=== PATIENT | male | born 2000 | race Caucasian/White ===

== ENCOUNTER 2024-03-09 01:26 | Observation (INO) ==
[2024-03-09] MEDS: SODIUM CHLORIDE 0.9% 1,000 ML IV STA ×2 (01:48→04:14)
--- NOTE | 2024-03-09 01:48 | ED Physician Documentation ---
PD HPI NVD Stated complaint Stated Complaint: BLOODY STOOL/N/V Chief complaint Chief Complaint: Abd Pain History obtained from History obtained from: Patient History of Present Illness Timing - onset: Enter time (1999) and Today Timing - duration: Hours Associated symptoms: Abdominal pain, Hematochezia, Dizzy and Near syncope / syncope Contributing factors: Sick contact (girlfiriends daughter with n/v 2 days ago) Improved by: Vomiting and Meds (zofran given en-route helped some with nausea) Similar symptoms before: Has not had sx before Recently seen: Not recently seen Additonal information Additional information: Angelo Key is a 23-year-old male previously healthy who had a poor appetite today and then at approximately 8 PM developed acute nausea and vomiting. He also indicates that he had some bright red blood per rectum after several bowel movements that were normal. He continues to have blood per rectum. He has not had either of the symptoms previously. He has been exposed to a child who has had gastroenteritis 2 days ago.He did receive some Zofran and route to the hospital and he had some mild improvement in his nausea associated with that. He continues to be nauseated. [place] Coma Scale Assess Eye opening: Spontaneous Verbal response: Oriented Motor response: Obeys Commands Total score: 15 Review of Systems Constitutional Reports: Chills and Diaphoresis; Denies: Fever Cardiovascular Reports: shortness of breath with exertion Respiratory Reports: Shortness of breath; Denies: Cough Gastrointestinal Reports: Abdominal pain, Nausea, Vomiting and Rectal bleeding; Denies: Coffee grounds in vomit, Painful bowel movements, Rectal pain, Rectal swelling or Rectal itching Musculoskeletal Reports: Back pain Meds/Allgy Home Medications Ambulatory Orders Medication Instructions Recorded Confirmed No Known Home Medications 03/09/24 03/09/24 Allergies Allergies Allergy/AdvReac Type Severity Reaction Status Date / Time amoxicillin Allergy Intermediate Rash Verified 03/09/24 01:38 [facility] Medical History Medical History (Updated 03/09/24 @ 05:23 by Jabari Nelson MD) No pertinent past medical history Surgical History Surgical History (Updated 03/09/24 @ 01:35 by KIANA Lazaro) No pertinent past surgical history Social History Social History Relationship: Do you feel safe in your home environment?: Yes Suffered physical, verbal, emotional, or financial abuse?: No POLST Patient has POLST: No Exam Exam Pale appearing 23-year-old male who is hyperventilating has dry mucous membranes and appears ill. 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 Constitutional The patient appears ill HENMT normocephalic and head/scalp atraumatic Eyes PERRL and EOMs intact bilaterally Neck/C-Spine visual inspection normal and trachea midline Chest inspection of chest normal and palpation of chest normal Respiratory breath sounds equal bilaterally, normal respiratory effort and clear to auscultation bilaterally Cardiovascular heart rate abnormal (tachycardic) (120), regular rhythm noted and no murmur Gastrointestinal tender to palpation (mild) and (epigastric) and rectal exam abnormal (heme positive stool) (pink blood on the glove. No hemorrhoids) Genitourinary no CVA tenderness Back/Pelvis spine normal to inspection Extremities normal to inspection, normal to palpation and no tenderness Neurology ed tech II-XII intact and no movement abnormality noted Psychiatry mental status grossly normal, oriented x3 and thought process normal The patient does appear anxious. Results Vitals Vitals: Vital Signs - 24 hr 03/09/24 01:31 03/09/24 02:05 03/09/24 02:24 Temperature 36.1 C L Temperature Source Temporal Artery Scan Pulse Rate 125 H 76 81 Respiratory Rate 19 15 15 Blood Pressure 100/66 100/66 115/78 O2 Saturation 100 98 98 O2 Source Room air Nasal cannula Room air If not protocol: Oxygen Flow, liters/minute 98 Pain Intensity 8 3 0 03/09/24 02:27 03/09/24 02:52 03/09/24 04:00 Temperature Temperature Source Pulse Rate 78 84 106 H Respiratory Rate 18 16 18 Blood Pressure 115/78 117/70 116/71 O2 Saturation 98 98 97 O2 Source Nasal cannula Nasal cannula Room air If not protocol: Oxygen Flow, liters/minute 2 2 Pain Intensity 7 0 3 Oxygen O2 Source Room air Labs Labs: Laboratory Tests 03/09/24 03/09/24 03/09/24 01:50 02:03 03:42 WBC 19.5 H 17.0 H RBC 6.25 H 5.62 Hgb 18.2 H 16.5 Hct 51.5 47.2 MCV 82.4 84.0 MCH 29.1 29.4 MCHC 35.3 35.0 RDW 11.7 L 11.8 L Plt Count 281 238 MPV 9.9 10.2 Neut # (Auto) 17.8 H 15.6 H Lymph # (Auto) 0.4 L 0.3 L [place] # (Auto) 1.1 H 1.0 Eos # (Auto) 0.0 0.0 Baso # (Auto) 0.1 0.1 Absolute Nucleated RBC 0.00 0.00 Nucleated RBC % 0.0 0.0 PT 15.4 H INR 1.4 H VBG pH 7.440 H VBG pCO2 31.2 L VBG pO2 37.9 VBG HCO3 20.7 L VBG Total CO2 21.7 L VBG O2 Saturation 74.3 VBG Base Excess -2.1 L Sodium 136 Potassium 3.5 Chloride 98 L Carbon Dioxide 23 Anion Gap 15.0 H BUN 18 Creatinine 1.5 H Estimated GFR (MDRD) 59 L Glucose 162 H Calcium 10.8 H Total Bilirubin 1.5 H AST 15 ALT 13 Alkaline Phosphatase 76 Total Protein 8.8 Albumin 5.5 Globulin 3.3 Albumin/Globulin Ratio 1.7 Lipase 18 Urine Color Urine Clarity Urine pH Ur Specific [place] Urine Protein Urine Glucose (UA) Urine Ketones Urine Occult Blood Urine Nitrite Urine Bilirubin Urine Urobilinogen Ur Leukocyte Esterase Urine RBC Urine WBC Ur Squamous Epith Cells Urine Bacteria Urine Mucus Ur Microscopic Review Urine Culture Comments Nasal Adenovirus (PCR) NOT DETECTED Nasal B. parapertussis DNA (PCR) NOT DETECTED Nasal Coronavir 229E PCR NOT DETECTED Nasal Coronavir HKU1 PCR NOT DETECTED Nasal Coronavir NL63 PCR NOT DETECTED Nasal Coronavir OC43 PCR NOT DETECTED Nasal Enterovir/Rhinovir PCR NOT DETECTED Nasal Influenza B PCR NOT DETECTED Nasal Influenza A PCR NOT DETECTED Nasal Parainfluen 1 PCR NOT DETECTED Nasal Parainfluen 2 PCR NOT DETECTED Nasal Parainfluen 3 PCR NOT DETECTED Nasal Parainfluen 4 PCR NOT DETECTED Nasal RSV (PCR) NOT DETECTED Nasal B.pertussis DNA PCR NOT DETECTED Nasal C.pneumoniae (PCR) NOT DETECTED Nav Human Metapneumo PCR NOT DETECTED Nasal M.pneumoniae (PCR) NOT DETECTED Nasal SARS-CoV-2 (PCR) NOT DETECTED Serum Ketones NEGATIVE 03/09/24 03:45 WBC RBC Hgb Hct MCV MCH MCHC RDW Plt Count MPV Neut # (Auto) Lymph # (Auto) [place] # (Auto) Eos # (Auto) Baso # (Auto) Absolute Nucleated RBC Nucleated RBC % PT INR VBG pH VBG pCO2 VBG pO2 VBG HCO3 VBG Total CO2 VBG O2 Saturation VBG Base Excess Sodium Potassium Chloride Carbon Dioxide Anion Gap BUN Creatinine Estimated GFR (MDRD) Glucose Calcium Total Bilirubin AST ALT Alkaline Phosphatase Total Protein Albumin Globulin Albumin/Globulin Ratio Lipase Urine Color DARK YELLOW Urine Clarity CLEAR Urine pH 6.0 Ur Specific [place] >=1.030 H Urine Protein 30 H Urine Glucose (UA) NEGATIVE Urine Ketones 15 H Urine Occult Blood NEGATIVE Urine Nitrite NEGATIVE Urine Bilirubin SMALL H Urine Urobilinogen 0.2 (NORMAL) Ur Leukocyte Esterase NEGATIVE Urine RBC 0-5 Urine WBC 0-3 Ur Squamous Epith Cells RARE Squamous Urine Bacteria Rare Urine Mucus Few Strands Ur Microscopic Review INDICATED Urine Culture Comments NOT INDICATED Nasal Adenovirus (PCR) Nasal B. parapertussis DNA (PCR) Nasal Coronavir 229E PCR Nasal Coronavir HKU1 PCR Nasal Coronavir NL63 PCR Nasal Coronavir OC43 PCR Nasal Enterovir/Rhinovir PCR Nasal Influenza B PCR Nasal Influenza A PCR Nasal Parainfluen 1 PCR Nasal Parainfluen 2 PCR Nasal Parainfluen 3 PCR Nasal Parainfluen 4 PCR Nasal RSV (PCR) Nasal B.pertussis DNA PCR Nasal C.pneumoniae (PCR) Nav Human Metapneumo PCR Nasal M.pneumoniae (PCR) Nasal SARS-CoV-2 (PCR) Serum Ketones Procedures IVC sono (time) 0145: Bedside IVC sono: IVC measures (cm) (1.1) and Dehydration (est 1+ liter deficit) PD Medical Decision Making ED course Complexity details: reviewed results, re-evaluated patient, considered differential and d/w patient Reviewed Lab Results: Patient's white blood cell count is markedly elevated at 19.5 and there are no comparisons. Hemoglobin and hematocrit are upper end of normal platelets are normal auto differential shows a left shift. The PT is 15.4 with an INR of 1.4 chemistries show creatinine elevated at 1.5 with no comparison glucose is elevated at 162 and route the patient's blood glucose was 199. Calcium elevated at 10.8 total bilirubin elevated at 1.5 the remainder of the liver functions are normal. BUN is normal at 18. This patient has had acute bleeding per rectum and does not have a decrease in his hemoglobin or hematocrit. He has elevated hematocrit and hemoglobin. Creatinine elevated at 1.5 without comparison is concerning for pre-existing renal disease. The patient has been ill for hours and it does take an entire day to raise the creatinine by 1 point. ED course: This 23-year-old male otherwise previously healthy presents to the emergency department appearing ill. He has had a brief illness and appears anxious and is hyperventilating on arrival. He does have a history of bright red blood per rectum associated with this illness and he has no findings in the rectum to account for blood. The amount of blood loss is presumed to be small as he has elevated hemoglobin and hematocrit. He is mildly dehydrated on interrogation of the IVC with POCUS. Today here in the emergency department we are administering fluid and Zofran as well as some Ativan. Shortly after receiving the Ativan the patient falls fastly asleep no longer hyperventilating and his pulse comes down to 80. No longer vomiting. Despite improvement in vitals he has more blood per rectum and this is sent for analysis and blood counts are repeated. Gastroenteritis with a fair amount of bleeding per rectum. After 4 hours of treatment in the emergency department the patient has some improvement in his nausea still feels dry and feels like he will have more blood per rectum. He has had a fair amount of blood out and despite normal blood counts I believe admission to the hospital for observation and supportive therapy is indicated. I spoke with the continuous washer operator at 0605 and he requested we do CT scan of abdomen and he will place admission orders. Discharge Plan Discharge Patient Disposition: ED Place in Observation Condition: Fair Clinical Impression: Gastroenteritis, Acute GI bleeding Prescriptions: No Action No Known Home Medications Print Language: Danish Stand Alone Forms: PCP List
[2024-03-09] MEDS: ONDANSETRON 4 MG/2 ML VIAL IVP STA (01:49)
[2024-03-09] MEDS: LORazepam 2 MG/ML VIAL IVP STA (01:49)
[2024-03-09 01:55] LABS: BASOPHILS # (AUTO) 0.1 10^3/uL (0.0-0.1); BASOPHILS % (AUTO) 0.4 %; EOSINOPHILS % (AUTO) 0.1 %; HCT - HEMATOCRIT 51.5 % (42.0-52.0); HGB - HEMOGLOBIN 18.2 g/dL (14.0-18.0); LYMPHOCYTES # (AUTO) 0.4 10^3/uL (1.5-3.5); LYMPHOCYTES % (AUTO) 2.2 %; MEAN CORPUSCULAR HEMOGLOBIN 29.1 pg (27.0-31.0); MEAN CORPUSCULAR HGB CONC 35.3 g/dL (32.0-36.0); MEAN CORPUSCULAR VOLUME 82.4 fL (80.0-94.0); MEAN PLATELET VOLUME 9.9 fL (7.4-11.4); MONOCYTES # (AUTO) 1.1 10^3/uL (0.0-1.0); MONOCYTES % (AUTO) 5.6 %; NEUTROPHILS # (AUTO) 17.8 10^3/uL (1.5-6.6); NEUTROPHILS % (AUTO) 91.3 %; PLT - PLATELET COUNT 281 10^3/uL (130-450); RED BLOOD COUNT 6.25 10^6/uL (4.70-6.10); RED CELL DISTRIBUTION WIDTH 11.7 % (12.0-15.0); WHITE BLOOD COUNT 19.5 x10^3/uL (4.8-10.8)
[2024-03-09 02:01] LABS: INR 1.4 (0.8-1.2); PT - PROTHROMBIN TIME 15.4 secs (9.9-12.6)
[2024-03-09 02:13] LABS: ALBUMIN 5.5 g/dL (3.2-5.5); ALBUMIN/GLOBULIN RATIO 1.7 (1.0-2.2); BILIRUBIN,TOTAL 1.5 mg/dL (0.2-1.0); CALCIUM 10.8 mg/dL (8.5-10.3); CREATININE 1.5 mg/dL (0.6-1.3); POTASSIUM 3.5 mmol/L (3.5-4.5); TOTAL PROTEIN 8.8 g/dL (6.4-8.9)
[2024-03-09 03:09] LABS: B. PARAPERTUSSIS- RESP PCR PAN NOT DETECTED; B. PERTUSSIS- RESP PCR PANEL NOT DETECTED; C. PNEUMONIAE- RESP PCR PANEL NOT DETECTED; CORONAVIRUS 229E-RESP PCR NOT DETECTED; CORONAVIRUS HKU1-RESP PCR NOT DETECTED; CORONAVIRUS NL63-RESP PCR NOT DETECTED; CORONAVIRUS OC43-RESP PCR NOT DETECTED; HUMAN METAPNEUMOVIRUS NOT DETECTED; INFLUENZA A- RESP PCR PANEL NOT DETECTED; INFLUENZA B - RESP PCR PANEL NOT DETECTED; M. PNEUMONIAE- RESP PCR PANEL NOT DETECTED; PARAINFLUENZA VIRUS 1 NOT DETECTED; PARAINFLUENZA VIRUS 2 NOT DETECTED; PARAINFLUENZA VIRUS 3 NOT DETECTED; PARAINFLUENZA VIRUS 4 NOT DETECTED; RHINOVIRUS/ENTEROVIRUS NOT DETECTED; RSV- RESP PCR PANEL NOT DETECTED; SARS-CoV-2 -RESP PCR PANEL NOT DETECTED
[2024-03-09 03:48] LABS: BASOPHILS # (AUTO) 0.1 10^3/uL (0.0-0.1); BASOPHILS % (AUTO) 0.3 %; HCT - HEMATOCRIT 47.2 % (42.0-52.0); HGB - HEMOGLOBIN 16.5 g/dL (14.0-18.0); LYMPHOCYTES # (AUTO) 0.3 10^3/uL (1.5-3.5); MEAN CORPUSCULAR HEMOGLOBIN 29.4 pg (27.0-31.0); MEAN PLATELET VOLUME 10.2 fL (7.4-11.4); MONOCYTES % (AUTO) 5.7 %; NEUTROPHILS # (AUTO) 15.6 10^3/uL (1.5-6.6); NEUTROPHILS % (AUTO) 91.7 %; PLT - PLATELET COUNT 238 10^3/uL (130-450); RED BLOOD COUNT 5.62 10^6/uL (4.70-6.10); RED CELL DISTRIBUTION WIDTH 11.8 % (12.0-15.0)
[2024-03-09 03:52] LABS: VBG BASE EXCESS -2.1 mmol/L (-2 - +2); VBG HCO3 20.7 mmol/L (23-28); VBG OXYGEN SATURATION 74.3 % (60-80); VBG PCO2 31.2 mmHg (41-51); VBG PH 7.44 (7.31-7.41); VBG PO2 37.9 mmHg (25-47); VBG TOTAL CO2 21.7 mmol/L (24-29)
[2024-03-09 03:55] LABS: BILIRUBIN,URINE SMALL (NEGATIVE); GLUCOSE, URINE (UA) NEGATIVE (NEGATIVE); KETONES,URINE (UA) 15 mg/dL (NEGATIVE); LEUKOCYTE ESTERASE, URINE NEGATIVE (NEGATIVE); NITRITE,URINE NEGATIVE (NEGATIVE); OCCULT BLOOD,URINE NEGATIVE (NEGATIVE); PROTEIN,URINE 30 mg/dL (NEGATIVE); UROBILINOGEN,URINE 0.2 (NORMAL) E.U./dL (NORMAL)
[2024-03-09 03:56] LABS: CLARITY,URINE CLEAR (CLEAR)
[2024-03-09 04:05] LABS: BACTERIA,URINE Rare /HPF (None Seen); MUCUS,URINE Few Strands; RBC,URINE 0-5 /HPF (0-5); SQUAMOUS EPITHELIAL CELL,UR RARE Squamous (<= Few); WBC,URINE 0-3 /HPF (0-3)
[2024-03-09] MEDS: PANTOPRAZOLE 40 MG VIAL IVP STA (04:41)
[2024-03-09] MEDS ORDERED: BENZONATATE 100 MG CAPSULE PO PRN (06:08)
[2024-03-09] MEDS ORDERED: MORPHINE 10 MG/ML VIAL IVP PRN (06:08)
[2024-03-09] MEDS ORDERED: ONDANSETRON 4 MG/2 ML VIAL IVP PRN (06:08)
[2024-03-09] MEDS ORDERED: ACETAMINOPHEN 325 MG TABLET PO PRN (06:08)
[2024-03-09] MEDS ORDERED: iohexoL-300 100 ML VIAL ONE (06:17)
[2024-03-09 06:31] LABS: H. PYLORIS ANTIGEN STL NEGATIVE (Negative)
[2024-03-09] MEDS: iohexoL-300 100 ML VIAL IVP ONE (06:53)
--- NOTE | 2024-03-09 07:46 | CT Report ---
PROCEDURE: CT Abdomen/Pelvis W INDICATIONS: epigastric pain, bloody stool, vomiting CONTRAST: 100 ML OMNI 300 TECHNIQUE: After the administration of intravenous contrast, a CT scan of the abdomen and pelvis was performed. Images were recorded and evaluated at appropriate window settings. Reformats: coronal and sagittal. F or radiation dose reduction, the following was used: automated exposure control, adjustment of mA and /or kV according to patient size. COMPARISON: None. FINDINGS: Image quality: Diagnostic. Lower chest: Unremarkable. Liver: No solid mass. Focal fatty infiltration of the falciform ligament. Gallbladder: No radiopaque stones or wall thickening. Biliary tree: No intrahepatic or extrahepatic dilation, accounting for age. Spleen: No splenomegaly. Pancreas: No pancreatic ductal dilation. Adrenals: No adrenal nodule. Kidneys and ureters: No hydronephrosis. No renal cystic lesion which requires follow up. No solid mas s. Stomach, bowel and peritoneum: Liquid stool contents in the rectum suggesting diarrhea. No diverticul osis. Liquid stool contents in the colon. The appendix is not dilated. No small bowel obstruction. St omach and duodenum are felt to be within normal limits. No active extravasation is seen. No pathologi c free fluid. No pneumoperitoneum. Lymph nodes: No central or retroperitoneal adenopathy. Vessels: No infrarenal aortic aneurysm. Patent portal vein. PELVIS Reproductive organs: Unremarkable. Bladder: No abnormal wall thickening, accounting for underdistention. Pelvic lymph nodes: No pelvic adenopathy by size criteria. Bones: No aggressive osseous abnormality. Other: No significant ventral or inguinal hernia. IMPRESSION: Liquid stool contents throughout the colon and rectum suggesting diarrhea. This could be due to a col itis. No focal inflammation is identified. No free fluid. No pneumoperitoneum. The appendix is not dilated. Reviewed by: Tr Saab MD on 03/09/2024 7:44 AM [facility] Approved by: Tr Saab MD on 03/09/2024 7:44 AM PST Station ID: [id number]
--- NOTE | 2024-03-09 07:54 | HISTORY & PHYSICAL EXAMINATION ---
Chief Complaint Chief Complaint Chief Complaint: Bloody stool History of Present Illness Admitted From Admitted From:: ED History Obtained From Records Reviewed: ED note History obtained from: Patient Exam Limitations: none History of Present Illness HPI Comment/Other: Has an approximately 12-hour history of bloody stool with acute nausea and vomiting. He has had multiple bowel movements since he has been in the emergency department. He was exposed to a child with gastroenteritis 2 days ago. He has not been running any fevers. he has mild crampy abdominal pain. He had received 2 L of fluid in the ED, and still feels dehydrated. He is otherwise healthy. Occasionally vapes nicotine. Has not had any alcohol to drink for 3 months. Does not use any drugs. Does not have any prescription medications that he takes regularly. He is originally from [place]. He has been in the [employer] about 4 years and is planning to get out and go to college in [place] for mechanical engineering. Meds/Allgy Home Medications Ambulatory Orders Medication Instructions Recorded Confirmed No Known Home Medications 03/09/24 03/09/24 Allergies Allergies Allergy/AdvReac Type Severity Reaction Status Date / Time amoxicillin Allergy Intermediate Rash Verified 03/09/24 01:38 [facility] Medical History Medical History (Updated 03/09/24 @ 05:23 by Jabari Nelson MD) No pertinent past medical history Surgical History Surgical History (Updated 03/09/24 @ 01:35 by Daniella Isabel, BRODYC) No pertinent past surgical history Family History Family History (Updated 03/09/24 @ 08:02 by SARAVANAN Monzon) Father Kidney disease Diabetes Mother Diabetes Social History Social History Relationship: Do you feel safe in your home environment?: Yes Suffered physical, verbal, emotional, or financial abuse?: No POLST Patient has POLST: No POLST Status: Full Code Review of Systems Status of ROS: 10 or more systems reviewed and unremarkable except as noted in history and below Constitutional Reports: Fatigue and Malaise; Denies: Fever or Chills Eyes Denies: Blurry vision Ears, nose, mouth, and throat Denies: Ear pain Cardiovascular Denies: Irregular heart rate, palpitations or shortness of breath with exertion Respiratory Denies: Shortness of breath Gastrointestinal Reports: Abdominal pain, Nausea, Vomiting, Poor appetite and Blood in stool; Denies: Abdominal distention or Coffee grounds in vomit Musculoskeletal Denies: Muscle cramps or Muscle weakness Integumentary/Breast Denies: Rash Neurological Denies: Headache Psychiatric Denies: Depression Endocrine Reports: Fatigue Prior Level of Functionality: Functional adult. independent. Exam Constitutional normal general appearance HENMT normocephalic, hearing grossly normal bilaterally and oral mucous membranes normal (mucous membranes are very dry (after 2L NS)) Eyes PERRL, conjunctivae normal and visual acuity normal Neck/C-Spine visual inspection normal and trachea midline Lymph no lymphadenopathy noted Chest inspection of chest normal Respiratory breath sounds equal bilaterally, normal respiratory effort and clear to auscultation bilaterally Cardiovascular normal heart rate noted he has been intermittently tachycardic Gastrointestinal abdomen normal to inspection, abdomen soft to palpation and nondistended very mild tenderness, slightly increase bowel sounds Genitourinary no CVA tenderness Back/Pelvis spine normal to inspection Extremities normal to inspection Neurology radiology specialist II-XII intact Psychiatry mental status grossly normal Skin skin color normal Conclusion/Plan Problem List (1) Acute GI bleeding: Plan: He has had blood in his stool. His H&H is not markedly abnormal. It is hard to differentiate between dehydration and acute blood loss. I will admit this patient. I will provide IV hydration. I will provide symptomatic relief. Stool PCR is ordered and pending. He has no family history of autoimmune bowel disease. (2) Gastroenteritis: Plan: Nausea vomiting and diarrhea for about 12 hours with severe dehydration. Supportive care. He has mildly elevated creatinine at 1.5. I do not have any baseline. We will repeat labs in the AM. Lab Results Lab results reviewed: Yes 03/09/24 03:42 03/09/24 01:50 Diagnostic Imaging Results Diagnostic Imaging Results: positive Final report reviewed Diagnostic Imaging Results Comments: CT A/P: there is liquid stool in the colon. No findings otherwise
[2024-03-09] MEDS: LACTATED RINGERS 1,000 ML IV SCH (07:58)
[2024-03-09] MEDS: LACTOBACILLUS RHAMNOSUS GG CAPSULE PO SCH (10:28)
--- NOTE | 2024-03-09 16:29 | PHARMACY PROGRESS NOTE ---
Best Possible Medication History Admit Date and Time: 03/09/24 [id number] Home Medications Medication Instructions Recorded Confirmed Type No Known Home Medications 03/09/24 03/09/24 History Processed by: Pharmacy Medications reviewed in ED?: Yes Medication History completed: Yes Patient Interview: Completed [facility] Statement: Pt reports no home medications. As the person ultimately responsible for medication therapy, providers are able to order a medication from an existing home medication list in [facility] via the "Reconcile Routine" prior to Confirmation of that medication by technical support intern. Such practice is discouraged except when the physician, in their clinical judgment, deems that a medical need exists for a medication without regard to previous use.
[2024-03-09 17:35] VITALS: O2SAT 99
--- NOTE | 2024-03-09 17:41 | Discharge Summary ---
"Discharge Summary Admit Date: 03/09/24 Discharge Date: 03/09/24 Discharging Provider: Kasie Park PA-C Primary Care Provider: Vin Code Status: Attempt Resuscitation DIAGNOSES Discharge Diagnoses with Status of Each Condition: Acute GI bleeding, resolved Acute Gastroenteritis, resolving Elevated Creatinine, POA HPI History of Present Illness: Has an approximately 12-hour history of bloody stool with acute nausea and vomiting. He has had multiple bowel movements since he has been in the emergency department. He was exposed to a child with gastroenteritis 2 days ago. He has not been running any fevers. he has mild crampy abdominal pain. He had received 2 L of fluid in the ED, and still feels dehydrated. He is otherwise healthy. Occasionally vapes nicotine. Has not had any alcohol to drink for 3 months. Does not use any drugs. Does not have any prescription medications that he takes regularly. He is originally from [place]. He has been in the [employer] about 4 years and is planning to get out and go to college in [place] for mechanical engineering. CONSULTS | PROCEDURES Procedures: CT a/p: liquid stool in the colon, otherwise unremarkable HOSPITAL COURSE Hospital Course: admitted from the ED with gastroenteritis, blood in stool and dehydration. Had dry mucous membranes and tachycardia on admission. He was given 2 L of IV fluid in the emergency department. His last vomiting was prior to his arrival at the hospital. He did not vomit again. He tolerated clear liquid diet and felt ready to discharge home on the evening of admission. He requested to discharge home and was in stable condition therefore was sent home. He had elevated creatinine 1.5 at the time of admission. He will follow-up with his primary care physician at the [facility] later this week for repeat BMP. He will return should his symptoms worsen. He was discharged home with a prescription for Zofran. ALLERGIES Allergies Allergy/AdvReac Type Severity Reaction Status Date / Time amoxicillin Allergy Intermediate Rash Verified 03/09/24 01:38 MEDICATIONS Ambulatory Orders Medication Instructions Recorded Confirmed ondansetron HCl 4 mg tablet 4 mg PO Q8H PRN nausea and 03/09/24 vomiting #20 tabs PHYSICAL EXAM AT DISCHARGE General Appearance: positive No acute distress and Alert Eyes Bilateral: positive Normal inspection ENT: positive ENT inspection nml Neck: positive Nml inspection Respiratory: positive No respiratory distress and Breath sounds nml Cardiovascular: positive Regular rate & rhythm Abdomen: positive Non-tender and No distention Back: positive Nml inspection Skin: positive Color nml Extremities: positive Non-tender and No pedal edema Neurologic/Psychiatric: positive Oriented x3 LABS 03/09/24 03:42 03/09/24 01:50 FOLLOW UP Follow Up: [facility] his primary care physician is Dr. Banuelos later this week. Patient was given a work note for 2 days. TIME SPENT Time Spent in Discharge (Minutes): 30 Discharge Plan Discharge Patient Disposition: Home, Self Care Condition: Fair Prescriptions: New ondansetron HCl 4 mg tablet 4 mg PO Q8H PRN (Reason: nausea and vomiting) Qty: 20 0RF Diet: Regular Interventions: Belongings Inventory Last Done: 03/09/24 17:34 Discharge Last Done: 03/09/24 17:34 Discharge Checklist - Nursing Last Done: 03/09/24 17:35 Health Concerns: You came into the hospital with dehydration and bloody stools. So far testing for stool pathogens is negative, however many of these tests take days to come back. I would like you to follow-up with your primary care, Dr. Banuelos at the [facility] at the end of the week. Eat small amounts of food things like crackers and toast and clear liquids until you feel ready to advance your diet. It may take several days for you to feel better from this. Print Language: Singaporean Patient Instructions: ED Gastroenteritis Viral Follow-up Care: ROSE MARY BANUELOS DO [Physician No Access] -"
[2024-03-10 03:07] LABS: ADENOVIRUS F 40/41 Not Detected (Not Detected); ASTROVIRUS Not Detected (Not Detected); C DIFFICILE TOXIN A/B Not Detected (Not Detected); CAMPYLOBACTER Not Detected (Not Detected); CRYPTOSPORIDIUM Not Detected (Not Detected); CYCLOSPORA CAYETANENSIS Not Detected (Not Detected); ENTAMOEBA HISTOLYTICA Not Detected (Not Detected); ENTEROAGGREGATIVE E COLI Not Detected (Not Detected); ENTEROPATHOGENIC E COLI Not Detected (Not Detected); ENTEROTOXIGENIC E COLI Not Detected (Not Detected); GIARDIA LAMBLIA Not Detected (Not Detected); NOROVIRUS GI/GII Detected (Not Detected); PLESIOMONAS SHIGELLOIDES Not Detected (Not Detected); ROTAVIRUS A Not Detected (Not Detected); SALMONELLA Not Detected (Not Detected); SAPOVIRUS Not Detected (Not Detected); SHIGA-TOXIN-PRODUCING E COLI Not Detected (Not Detected); SHIGELLA/ENTEROINVASIVE E COLI Not Detected (Not Detected); VIBRIO Not Detected (Not Detected); VIBRIO CHOLERAE Not Detected (Not Detected); YERSINIA ENTEROCOLITICA Not Detected (Not Detected)
== END 2024-03-09 17:47 | disposition home or self-care (01) ==
LOC: ED 01:26 → MS2 01:26
PROVIDERS: ADMIT Student in an Organized Health Care Education/Training Program; ATTEND Student in an Organized Health Care Education/Training Program
DX: R79.89 Other specified abnormal findings of blood chemistry; K92.2 Gastrointestinal hemorrhage, unspecified; F17.290 Nicotine dependence, other tobacco product, uncomplicated; K52.9 Noninfective gastroenteritis and colitis, unspecified